=== PATIENT | female | born 1955 | race Caucasian/White ===

== ENCOUNTER 2021-03-28 10:38 | Observation (INO) ==
[2021-03-28] MEDS ORDERED: Lactated Ringers 1000 ml BAG 1,000 ML IV ONE ×2 (10:54→13:02)
[2021-03-28] MEDS ORDERED: Piperacillin/Tazobac ADVAN 3.375 GM in NS 0.9% 100 ml BAG 100 ML IVPB ONE (11:09)
[2021-03-28 12:21] LABS: ABS Eosinophils 0.1 10^3/ul (0-0.6); ABS Lymphocytes 0.8 10^3/ul (1.0-4.8); ABS Monocytes 0.9 10^3/ul (0-0.8); ABS Neutrophils 10.2 10^3/ul (1.5-7.7); Eosinophil % 0.6 %; Hematocrit 40 % (35-47); Hemoglobin 13.8 g/dL (12.0-16.0); Lymphocyte % 6.8 %; Mean Corpuscular HGB Conc 35 g/dL (31-36); Mean Corpuscular Hemoglobin 33 pg (27-31); Mean Corpuscular Volume 95 fL (80-97); Mean Platelet Volume 9.3 fL (7.4-10.4); Platelet Count 212 10^3/uL (150-450); Red Blood Count 4.19 10^6 /uL (3.70-4.87); Red Cell Distribution Width 13 % (10-15)
[2021-03-28 12:33] LABS: Albumin/Globulin Ratio 1.2 (1-3); C Reactive Protein 71.82 mg/L (<8.01); Calcium 9.3 mg/dL (8.6-10.3); Globulin 3.4 g/dL (2-4); Potassium 3.3 mmol/L (3.5-5.0); Total Protein 7.4 g/dL (6.4-8.9); eGFR CKD-EPI 101.2 (>60)
[2021-03-28] MEDS ORDERED: Iohexol 300 (CONTRAST) 10 ML SDV IV ONE (12:41)
[2021-03-28] MEDS ORDERED: Morphine 4 MG/ML VIAL (1 ml) IV ONE (13:02)
[2021-03-28] MEDS ORDERED: Ondansetron 4 mg VIAL 2 MG/ML 2 ml VIAL IV ONE (13:02)
[2021-03-28] MEDS ORDERED: Piperacillin/Tazobac 3.375 GM BAG ONE (13:35)
[2021-03-28 14:08] LABS: Troponin I 0.01 ng/mL (<0.03)
[2021-03-28 14:14] LABS: Rapid COVID-19 Molecular Undetected (Undetected)
[2021-03-28 15:07] LABS: Activated Partial Thrombo Time 28.6 seconds (26.0-38.0); INR 1.21 (0.86-1.15)
[2021-03-28 16:01] LABS: Urine Appearance Clear; Urine Bilirubin Negative (Negative); Urine Blood 2+ (Negative); Urine Color Amber; Urine Glucose Negative (Negative); Urine Ketones Negative (Negative); Urine Nitrite Negative (Negative); Urine Protein 1+(30 mg/dL) (Negative); Urine Specific Gravity 1.032 (1.002-1.030); Urine Urobilinogen Negative (Negative)
[2021-03-28 16:09] LABS: Urine Bacteria Absent (Absent); Urine Red Blood Cell 3+(>10/hpf) (Absent); Urine Squamous Epithelial Cell Present (Absent); Urine White Blood Cell Trace(0-5/hpf) (Absent)
[2021-03-28] MEDS ORDERED: Acetaminophen IV 1 GM/100ML 100 ML IV ONE (17:30)
[2021-03-28] MEDS ORDERED: Rocuronium 50 mg VIAL 10 mg/ml 5 ml VIAL (50 mg) ONE (17:30)
[2021-03-28] MEDS ORDERED: Midazolam 2 mg/2 ml VIAL 1 mg/ml 2 ml VIAL (2 mg) ONE (17:31)
[2021-03-28] MEDS ORDERED: Dexamethasone IV 4 MG/ML VIAL 1 ml VIAL ONE (17:32)
[2021-03-28] MEDS ORDERED: Propofol 10 MG/ML 20 ML BTL ONE (17:32)
[2021-03-28] MEDS ORDERED: fentaNYL 100 mcg/2 ml 50 MCG/ML VIAL ONE (17:32)
[2021-03-28] MEDS ORDERED: Lidocaine 2% PF 5 ML VIAL ONE (17:32)
[2021-03-28] MEDS ORDERED: Ondansetron 4 mg VIAL 2 MG/ML 2 ml VIAL ONE ×2 (17:32→21:03)
[2021-03-28] MEDS ORDERED: HYDROmorphone 0.5 MG/0.5 ML SYRINGE ONE (18:46)
[2021-03-28] MEDS ORDERED: Naloxone 0.4 mg VIAL 0.4 mg/ml 1 ml VIAL IV PRN ×2 (18:59→22:44)
[2021-03-28] MEDS ORDERED: Ondansetron 4 mg VIAL 2 MG/ML 2 ml VIAL IV PRN ×2 (18:59→20:35)
[2021-03-28] MEDS ORDERED: fentaNYL 100 mcg/2 ml 50 MCG/ML VIAL IV PRN (18:59)
[2021-03-28] MEDS ORDERED: DiMENhydriNATE IV 50 mg/ml 1 ml VIAL IV PUSH PRN (18:59)
[2021-03-28] MEDS ORDERED: Sevoflurane BOTTLE ONE (19:22)
[2021-03-28] MEDS ORDERED: ROPIVACAINE 5 MG/ML 30 ML BTL (0.5%) ONE (19:57)
[2021-03-28] MEDS ORDERED: HYDROmorphone 0.5 MG/0.5 ML SYRINGE IV SLOW PU PRN (20:35)
[2021-03-28] MEDS ORDERED: HYDROmorphone 1 MG/1 ML SYRINGE IV SLOW PU PRN (20:35)
[2021-03-28] MEDS ORDERED: DiMENhydriNATE IV 50 mg/ml 1 ml VIAL ONE (21:11)
[2021-03-29] MEDS: Heparin 5000 UNITS/ML 1 mL VIAL SUBCUT SCH ×3 (00:19→12:35)
[2021-03-29] MEDS: Potassium Chloride IV 20 MEQ in Lactated Ringers 1000 ml BAG 1,000 ML IVPB SCH ×2 (00:19→09:58)
[2021-03-29 05:08] LABS: Calcium 8.5 mg/dL (8.6-10.3); Potassium 3.6 mmol/L (3.5-5.0)
[2021-03-29] MEDS ORDERED: Albuterol HFA INHALER 8 gm MDI INH SCH (07:00)
[2021-03-29] MEDS ORDERED: DULoxetine DR 60 mg CAP PO SCH (09:00)
[2021-03-29 11:48] VITALS: BP 126/55
[2021-03-31] MEDS ORDERED: Scopolamine PATCH Remove NOTE PATCH OFF ONE (22:45)
== END 2021-03-29 13:20 | disposition home or self-care (01) ==
LOC: ED 10:38 → OR 16:45 → SSU 17:20 → INTOOBSV 20:28 → SSU 23:41
PROVIDERS: ADMIT Surgery; ATTEND Surgery

== ENCOUNTER 2023-05-13 12:43 | Inpatient (IN) ==
[2023-05-13] MEDS: Albuterol/Ipratropium NEB.SOL (2.5/0.5 MG) 3 ML NEB.SOLN INH ONE ×2 (14:06→17:29)
[2023-05-13] MEDS: Dexamethasone IV 4 MG/ML VIAL 1 ml VIAL IV SLOW PU ONE (14:15)
[2023-05-13 14:59] LABS: Albumin 3.7 g/dL (3.2-5.2); Albumin/Globulin Ratio 1.2 (1-3); Calcium 9.5 mg/dL (8.6-10.3); Creatinine, Serum 0.55 mg/dL (0.51-0.95); Globulin 3.1 g/dL (2-4); Potassium 3.6 mmol/L (3.5-5.0); Total Bilirubin 0.7 mg/dL (0.2-1.0); Total Protein 6.8 g/dL (6.4-8.9); eGFR CKD-EPI 100.4 (>60)
[2023-05-13 16:00] LABS: ABS Basophils 0.1 10^3/uL (0.0-0.1); ABS Eosinophils 0.1 10^3/uL (0.0-0.5); ABS Lymphocytes 0.6 10^3/uL (1.0-4.8); ABS Monocytes 0.3 10^3/uL (0.0-0.9); ABS Neutrophils 6.8 10^3/uL (1.5-7.6); ABS Nucleated RBC 0.01 10^3/ul; Eosinophil % 1.8 %; Hematocrit 36.3 % (35-45); Hemoglobin 12.1 g/dL (11.5-14.3); Lymphocyte % 7.2 %; Mean Corpuscular Hemoglobin 32.8 pg (27-33); Mean Corpuscular Hgb Conc 33.3 g/dL (31-36); Mean Corpuscular Volume 98.4 fL (80-97); Mean Platelet Volume 8.4 fL (7.5-11.2); Nucleated Red Blood Cells % 0.1 %/100WBC (0.0-0.8); Platelet Count 211 10^3/uL (150-450); Red Blood Count 3.69 10^6/uL (3.63-4.92); Red Cell Distribution Width 13.7 % (12-17); White Blood Count 7.9 10^3/uL (3.8-11.8)
[2023-05-13 16:57] LABS: High Sensitivity Troponin 1 Hr 11 pg/mL (<15)
[2023-05-13] MEDS ORDERED: Albuterol/Ipratropium NEB.SOL (2.5/0.5 MG) 3 ML NEB.SOLN INH PRN (18:12)
[2023-05-13] MEDS ORDERED: Albuterol HFA INHALER 8 gm MDI INH PRN (19:02)
[2023-05-13] MEDS: Enoxaparin 40 MG/0.4 ML SYR SUBCUT SCH (19:42)
[2023-05-13] MEDS: Furosemide 40 mg/4 ml IV VIAL IV ONE (19:43)
[2023-05-13 20:49] LABS: Urine Appearance Clear; Urine Bilirubin Negative (Negative); Urine Blood Negative (Negative); Urine Color Yellow; Urine Glucose Negative (Negative); Urine Ketones Negative (Negative); Urine Nitrite Negative (Negative); Urine Protein Negative (Negative); Urine Specific Gravity 1.008 (1.002-1.030); Urine Urobilinogen Negative (Negative)
[2023-05-13 21:04] LABS: Urine Bacteria Absent (Absent); Urine Red Blood Cell Trace(0-2/hpf) (Absent); Urine Squamous Epithelial Cell Present (Absent); Urine White Blood Cell Trace(0-5/hpf) (Absent)
[2023-05-14] MEDS: Iohexol 350 (CONTRAST) 500 ML MDV IV ONE (00:28)
[2023-05-14] MEDS: Ciprofloxacin 0.3% OPTH.SOL BTL BOTH EYES SCH ×2 (01:02→17:19)
[2023-05-14 07:14] LABS: ABS Lymphocytes 0.6 10^3/uL (1.0-4.8); ABS Monocytes 0.5 10^3/uL (0.0-0.9); ABS Neutrophils 5.4 10^3/uL (1.5-7.6); Hemoglobin 12.1 g/dL (11.5-14.3); Mean Corpuscular Hemoglobin 32.8 pg (27-33); Mean Corpuscular Hgb Conc 33.5 g/dL (31-36); Mean Platelet Volume 8.6 fL (7.5-11.2); Platelet Count 212 10^3/uL (150-450); Red Blood Count 3.68 10^6/uL (3.63-4.92); Red Cell Distribution Width 13.9 % (12-17); White Blood Count 6.5 10^3/uL (3.8-11.8)
[2023-05-14] MEDS: Mometasone/Formoter 200/5 MDI INH SCH (07:27)
[2023-05-14 07:30] LABS: Calcium 9.1 mg/dL (8.6-10.3); Creatinine, Serum 0.63 mg/dL (0.51-0.95); Potassium 3.6 mmol/L (3.5-5.0); eGFR CKD-EPI 97.2 (>60)
[2023-05-14] MEDS: DULoxetine DR 30 mg CAP PO SCH (10:28)
[2023-05-14] MEDS: Cholecalciferol (VIT D3) 1,000 unit TAB PO SCH (10:28)
[2023-05-14] MEDS: Furosemide 40 mg/4 ml IV VIAL IV SLOW PU ONE ×2 (10:29→21:46)
[2023-05-14] MEDS: CMCS:Simvastatin 10 mg TAB (NF) PO SCH (10:29)
[2023-05-14 15:45] LABS: C Reactive Protein 7.22 mg/L (<8.01)
[2023-05-15 09:27] LABS: Calcium 9.5 mg/dL (8.6-10.3); Creatinine, Serum 0.65 mg/dL (0.51-0.95); Potassium 3.7 mmol/L (3.5-5.0); eGFR CKD-EPI 96.4 (>60)
[2023-05-15] MEDS: Furosemide 40 mg/4 ml IV VIAL IV SLOW PU ONE (11:13)
[2023-05-15] MEDS ORDERED: Iohexol 350 (CONTRAST) 500 ML MDV IV ONE (11:28)
[2023-05-15] MEDS: Iohexol 350 (CONTRAST) 500 ML MDV IV ONE (11:34)
[2023-05-15] MEDS: Furosemide 40 mg/4 ml IV VIAL IV ONE (21:45)
[2023-05-16 05:00] LABS: Calcium 9.3 mg/dL (8.6-10.3); Creatinine, Serum 0.68 mg/dL (0.51-0.95); Potassium 3.4 mmol/L (3.5-5.0); eGFR CKD-EPI 95.4 (>60)
[2023-05-16] MEDS: Potassium Chlor 20 meq TAB.ER PO ONE (08:44)
[2023-05-16] MEDS: Furosemide 40 mg/4 ml IV VIAL IV SLOW PU ONE (11:28)
[2023-05-16] MEDS: Furosemide 40 mg/4 ml IV VIAL ONE (13:59)
[2023-05-16] MEDS: Furosemide 40 mg/4 ml IV VIAL IV ONE (18:14)
[2023-05-17 05:33] LABS: ABS Lymphocytes 1.1 10^3/uL (1.0-4.8); ABS Monocytes 0.7 10^3/uL (0.0-0.9); ABS Neutrophils 5.1 10^3/uL (1.5-7.6); Eosinophil % 0.6 %; Hematocrit 36.9 % (35-45); Hemoglobin 12.5 g/dL (11.5-14.3); Lymphocyte % 16.2 %; Mean Corpuscular Hemoglobin 33.2 pg (27-33); Mean Corpuscular Hgb Conc 33.9 g/dL (31-36); Mean Corpuscular Volume 97.8 fL (80-97); Mean Platelet Volume 8.6 fL (7.5-11.2); Platelet Count 212 10^3/uL (150-450); Red Blood Count 3.77 10^6/uL (3.63-4.92); Red Cell Distribution Width 13.7 % (12-17)
[2023-05-17 05:50] LABS: Calcium 9.3 mg/dL (8.6-10.3); Creatinine, Serum 0.69 mg/dL (0.51-0.95); Potassium 3.5 mmol/L (3.5-5.0); eGFR CKD-EPI 95.1 (>60)
[2023-05-17] MEDS: Furosemide 40 mg/4 ml IV VIAL IV SLOW PU ONE (09:22)
[2023-05-18 10:03] LABS: Calcium 9.2 mg/dL (8.6-10.3); Creatinine, Serum 0.65 mg/dL (0.51-0.95); Potassium 3.5 mmol/L (3.5-5.0); eGFR CKD-EPI 96.4 (>60)
[2023-05-18] MEDS: Furosemide 40 mg/4 ml IV VIAL IV SLOW PU ONE ×2 (10:55→19:20)
[2023-05-18] MEDS: Nystatin TOP POWDER 15 GM BTL TOPICAL SCH (22:47)
[2023-05-19 14:05] LABS: Calcium 9.2 mg/dL (8.6-10.3); Creatinine, Serum 0.56 mg/dL (0.51-0.95); Potassium 3.6 mmol/L (3.5-5.0)
[2023-05-19] MEDS: Furosemide 40 mg/4 ml IV VIAL IV SLOW PU ONE (15:24)
[2023-05-20 14:11] VITALS: BP 163/90
== END 2023-05-20 14:30 | DRG 291 ==
LOC: ED 12:43 → EDHOLD 12:43 → SUATTDRO 18:02 → MED 19:49 → SUATTDRO 05-15 12:40
PROVIDERS: ADMIT Internal Medicine; ATTEND Hospitalist

== ENCOUNTER 2023-05-24 19:42 | Inpatient (IN) ==
[2023-05-24 20:25] LABS: Hematocrit 38.4 % (35-45); Hemoglobin 13.2 g/dL (11.5-14.3); Mean Corpuscular Hemoglobin 32.7 pg (27-33); Mean Corpuscular Hgb Conc 34.3 g/dL (31-36); Mean Corpuscular Volume 95.5 fL (80-97); Platelet Count 155 10^3/uL (150-450); Red Blood Count 4.03 10^6/uL (3.63-4.92); Red Cell Distribution Width 13.6 % (12-17); White Blood Count 4.2 10^3/uL (3.8-11.8)
[2023-05-24 20:39] LABS: Albumin 3.7 g/dL (3.2-5.2); Albumin/Globulin Ratio 1.4 (1-3); Calcium 8.2 mg/dL (8.6-10.3); Creatinine, Serum 0.63 mg/dL (0.51-0.95); Globulin 2.7 g/dL (2-4); Potassium 2.8 mmol/L (3.5-5.0); Total Bilirubin 0.6 mg/dL (0.2-1.0); Total Protein 6.4 g/dL (6.4-8.9); eGFR CKD-EPI 97.2 (>60)
[2023-05-24 20:55] LABS: ABS Lymphocytes 0.4 10^3/uL (1.0-4.8); ABS Neutrophils 2.7 10^3/uL (1.5-7.6); Eosinophil % 0.4 %; Lymphocyte % 9.9 %; Nucleated Red Blood Cells % 0.1 %/100WBC (0.0-0.8); RBC Morphology Normal (Normal); Smudge Cells Present
[2023-05-24] MEDS: Potassium Chlor 20 meq TAB.ER PO ONE (21:38)
[2023-05-24 22:33] LABS: High Sensitivity Troponin 1 Hr 18 pg/mL (<15)
[2023-05-25] MEDS: Iohexol 350 (CONTRAST) 500 ML MDV IV ONE (03:16)
[2023-05-25] MEDS: methylPREDNISolone SOD SUCC 125 mg 2 ML VIAL IV ONE (05:01)
[2023-05-25] MEDS: Albuterol/Ipratropium NEB.SOL (2.5/0.5 MG) 3 ML NEB.SOLN INH ONE (05:58)
[2023-05-25] MEDS ORDERED: Albuterol/Ipratropium NEB.SOL (2.5/0.5 MG) 3 ML NEB.SOLN INH PRN (07:58)
[2023-05-25] MEDS: Albuterol/Ipratropium NEB.SOL (2.5/0.5 MG) 3 ML NEB.SOLN INH SCH (08:27)
[2023-05-25 08:47] LABS: Magnesium 1.6 mg/dL (1.9-2.7)
[2023-05-25] MEDS: KCL 20 MEQ/100 ML IVPREMIX 20 MEQ/100 ML BAG IV ONE (09:41)
[2023-05-25] MEDS: Potassium Chlor 20 meq TAB.ER PO ONE (09:46)
[2023-05-25] MEDS: Enoxaparin 40 MG/0.4 ML SYR SUBCUT SCH (09:52)
[2023-05-25] MEDS: DULoxetine DR 30 mg CAP PO SCH (10:47)
[2023-05-25] MEDS: CMCS: LoraTADine 10 mg TAB (NF) PO SCH (10:48)
[2023-05-25] MEDS: Magnesium Sulf 4 GM/100 ML IV 4,000 MG/100 ML BAG IVPB ONE (11:19)
[2023-05-25] MEDS: Triamcinolone 0.025% OINT 15 GM TUBE TOPICAL SCH (14:34)
[2023-05-25] MEDS: Nystatin TOP POWDER 15 GM BTL TOPICAL SCH (14:34)
[2023-05-25] MEDS: methylPREDNISolone SOD SUCC 40 mg/ml 1 ml VIAL IV SCH (14:36)
[2023-05-25 15:48] LABS: Calcium 8.9 mg/dL (8.6-10.3); Creatinine, Serum 0.52 mg/dL (0.51-0.95); Magnesium 2.5 mg/dL (1.9-2.7); eGFR CKD-EPI 101.8 (>60)
[2023-05-25] MEDS: Albuterol HFA INHALER 8 gm MDI INH SCH (19:39)
[2023-05-25] MEDS: Mometasone/Formoter 200/5 MDI INH SCH (19:40)
[2023-05-26 08:16] LABS: Calcium 8.9 mg/dL (8.6-10.3); Creatinine, Serum 0.55 mg/dL (0.51-0.95); Magnesium 2.3 mg/dL (1.9-2.7); Potassium 4.4 mmol/L (3.5-5.0); eGFR CKD-EPI 100.4 (>60)
[2023-05-26 08:24] LABS: ABS Lymphocytes 0.5 10^3/uL (1.0-4.8); ABS Monocytes 0.6 10^3/uL (0.0-0.9); ABS Neutrophils 3.2 10^3/uL (1.5-7.6); ABS Nucleated RBC 0.02 10^3/ul; Eosinophil % 0.4 %; Hematocrit 40.7 % (35-45); Hemoglobin 13.5 g/dL (11.5-14.3); Lymphocyte % 11.9 %; Mean Corpuscular Hemoglobin 32.5 pg (27-33); Mean Corpuscular Hgb Conc 33.1 g/dL (31-36); Mean Corpuscular Volume 98.1 fL (80-97); Mean Platelet Volume 9.7 fL (7.5-11.2); Nucleated Red Blood Cells % 0.4 %/100WBC (0.0-0.8); Platelet Count 175 10^3/uL (150-450); Red Blood Count 4.15 10^6/uL (3.63-4.92); Red Cell Distribution Width 13.7 % (12-17); White Blood Count 4.3 10^3/uL (3.8-11.8)
[2023-05-26] MEDS: Miconazole 2% Top Powder BTL TOPICAL SCH (10:22)
[2023-05-26] MEDS: Albuterol/Ipratropium NEB.SOL (2.5/0.5 MG) 3 ML NEB.SOLN INH PRN (22:47)
[2023-05-27] MEDS ORDERED: Senna TAB 8.6 mg TAB PO PRN (18:54)
[2023-05-28] MEDS: Metoprolol Tartrate 5 mg VIAL 5 ml VIAL (1 mg/ml) IV PRN ×2 (03:54→09:15)
[2023-05-28 04:52] LABS: Potassium 4.6 mmol/L (3.5-5.0)
[2023-05-28 04:53] LABS: Calcium 9.1 mg/dL (8.6-10.3); Creatinine, Serum 0.59 mg/dL (0.51-0.95); Magnesium 2.2 mg/dL (1.9-2.7); eGFR CKD-EPI 98.7 (>60)
[2023-05-28 06:26] LABS: High Sensitivity Troponin 1 Hr 11 pg/mL (<15)
[2023-05-28] MEDS ORDERED: Flumazenil 0.5 mg/5 ml 0.1 MG/ML 5 ml VIAL ONE (14:13)
[2023-05-28] MEDS ORDERED: Midazolam 5 mg/5 ml VIAL 1 mg/ml 5 ml VIAL (5 mg) ONE (14:13)
[2023-05-28] MEDS ORDERED: Naloxone 0.4 mg VIAL 0.4 mg/ml 1 ml VIAL ONE (14:13)
[2023-05-28] MEDS ORDERED: fentaNYL 100 mcg/2 ml 50 MCG/ML VIAL ONE (14:13)
[2023-05-28] MEDS: Midazolam 10 mg/10 ml VIAL 1 mg/ml 10 ml VIAL (10 mg) IV SLOW PU ONE (16:25)
[2023-05-28] MEDS: fentaNYL 100 mcg/2 ml 50 MCG/ML VIAL IV SLOW PU ONE (16:25)
[2023-05-28] MEDS ORDERED: Albuterol HFA INHALER 8 gm MDI INH PRN (21:19)
[2023-05-29 15:33] VITALS: BP 130/87
== END 2023-05-29 14:40 | disposition home or self-care (01) | DRG 189 ==
LOC: ED 19:42 → EDHOLD 05-25 07:51 → SUATTDRO 05-25 07:51 → MEDTELE 05-25 10:31
PROVIDERS: ADMIT Hospitalist; ATTEND Internal Medicine
PROC: CARDVER (ICD-10-PCS; 2023-05-28 14:15)